=== PATIENT | male | born 2000 | race Caucasian/White ===

== ENCOUNTER 2019-01-29 09:26 | Day surgery (SDC) | payer OTHER ==
[2019-01-29] MEDS ORDERED: SEVOFLURANE 15 MIN (12:00)
[2019-01-29] MEDS ORDERED: GLYCOPYRROLATE 0.4 MG INJ ×2 (12:25→13:04)
[2019-01-29] MEDS ORDERED: NEOSTIGMINE 3 MG/3 ML SYRINGE ×2 (12:25→13:04)
[2019-01-29] MEDS ORDERED: PROPOFOL 20 ML (12:25)
[2019-01-29] MEDS ORDERED: LIDOCAINE 2% (SDV) 5 ML INJ (12:25)
[2019-01-29] MEDS ORDERED: SUCCINYLCHOLINE CHLORIDE 100 MG/5 ML SYG IV (12:25)
[2019-01-29] MEDS ORDERED: ROCURONIUM 50 MG INJ (12:25)
[2019-01-29] MEDS ORDERED: MEPERIDINE 100 MG INJ (12:25)
[2019-01-29] MEDS ORDERED: ONDANSETRON 4 MG INJ (13:06)
[2019-01-29] MEDS ORDERED: FENTAnyl 50 MCG/ML VIAL IV ×3 (13:30)
[2019-01-29] MEDS ORDERED: DIPHENHYDRAMINE 50 MG INJ IV (13:30)
[2019-01-29] MEDS ORDERED: ONDANSETRON 4 MG INJ IV (13:30)
[2019-01-29] MEDS ORDERED: OXYCODONE/ACETAMINOPHEN (5/325) TAB PO (13:30)
[2019-01-29] MEDS ORDERED: HYDROmorphONE 1 MG/5 ML IV SYRINGE IV ×3 (13:30)
[2019-01-29] MEDS ORDERED: MEPERIDINE 25 MG INJ IV (13:30)
[2019-01-29] MEDS ORDERED: METOCLOPRAMIDE 10 MG INJ IV (13:30)
[2019-01-29] MEDS ORDERED: MIDAZOLAM 1 MG/ML 2 ML INJ IV (13:30)
[2019-01-29] MEDS: OXYCODONE/ACETAMINOPHEN (5/325) TAB PO (14:11)
[2019-01-29] MEDS: LIDOCAINE 1%/EPI (1:100,000) (MDV) 20 ML (14:19)
[2019-01-29] MEDS: OXYMETAZOLINE 0.05% 15 ML NAS SPRAY NASAL (14:19)
== END 2019-01-29 15:10 | disposition home or self-care (01) ==
LOC: SDS 09:26
DX: J34.2 Deviated nasal septum (principal); J34.3 Hypertrophy of nasal turbinates
CPT/HCPCS: 30140; 88300